=== PATIENT | female | born 1965 | race Hispanic/Latino ===

== ENCOUNTER 2017-04-15 18:05 | Emergency (ER) | payer SELFPAY ==
[2017-04-15] MEDS ORDERED: Sodium Chloride 0.9% 1,000 ML ONE ×3 (18:53→20:55)
[2017-04-15] MEDS ORDERED: Acetaminophen 500 MG TAB ONE (18:53)
[2017-04-15] MEDS ORDERED: Ondansetron HCl/PF 4 MG/2 ML Vial ONE (18:53)
[2017-04-15 19:07] LABS: Bilirubin Negative (Negative); Blood, Urine Negative (Negative); Glucose, Urine (Dipstick) Negative (Negative); Leukocyte Negative (Negative); Nitrite Negative (Negative); Protein, Urine (Dipstick) 30 mg/dL (Neg-Trace); Urobilinogen 0.2 mg/dL (0.2-1.0)
[2017-04-15 19:08] LABS: Clarity SL HAZY (Clear)
[2017-04-15 19:14] LABS: ALT (SGPT) 19 U/L (8-55); AST (SGOT) 19 U/L (5-34); Albumin 4.4 g/dL (3.5-5.0); Alkaline Phosphatase 98 U/L (40-150); Anion Gap 17 mmol/L (10-20); BUN (Urea Nitrogen) 15 mg/dL (9.8-20.1); Bilirubin, Total 0.8 mg/dL (0.2-1.2); Calc. Creatinine Clearance 0 mL/min (70-130); Calcium 9.1 mg/dL (7.8-10.44); Carbon Dioxide 19 mmol/L (22-29); Chloride 100 mmol/L (98-107); Estimated GFR-MDRD 65; Glucose 146 mg/dL (70-105); Lipase 5 U/L (8-78); Potassium 3.6 mmol/L (3.5-5.1); Protein, Total 7.4 g/dL (6.0-8.3); Sodium 132 mmol/L (136-145)
[2017-04-15 19:18] LABS: Specific Gravity, Urine 1.028 (1.002-1.036)
[2017-04-15 19:19] LABS: Bacteria/HPF 1+ HPF (None Seen); Hyaline Casts/LPF 0-3 HYALINE CAST LPF (0-3 Hyaline); Squamous Epithelial 0-3 HPF (0-3); WBC/HPF 0-3 HPF (0-3)
[2017-04-15 19:22] LABS: #Lymphocytes 0.6 thou/uL (1.20-3.40); #Monocytes 0.6 thou/uL (0.11-0.59); #Neutrophils 20.1 thou/uL (1.40-6.50); %Basophils 0.1 % (0.0-1.0); %Lymphocytes 2.6 % (21.0-51.0); %Monocytes 2.7 % (0.0-10.0); %Neutrophils 94.5 % (42.0-75.0); Differential Comment SCANNED; Hemoglobin 14.5 g/dL (12.0-16.0); Mean Corpuscular HGB CONC 34.6 g/dL (32.0-36.0); Mean Corpuscular Hemoglobin 30.7 pg (27.0-31.0); Mean Corpuscular Volume 88.7 fl (81.0-99.0); Mean Platelet Volume 8.6 fL (7.4-10.4); Platelet Count 202 thou/uL (130-400); RBC Distribution Width 11.4 % (11.5-14.5); Red Blood Cell (RBC) Count 4.73 mill/uL (4.20-5.40); White Blood Cell (WBC) Count 21.3 thou/uL (4.8-10.8)
--- NOTE | 2017-04-15 19:46 | RAD ---
RADIOGRAPH CHEST 1 VIEW: HISTORY: A 51-year-old female with fever. FINDINGS: There are no air space densities, pulmonary edema, pneumothorax, or cardiomegaly. The lateral costo phrenic angles are sharp. IMPRESSION: No acute cardiopulmonary findings. precious [] POS: DIMITRIS
[2017-04-15] MEDS ORDERED: Ibuprofen 200 MG TAB ONE (22:08)
== END 2017-04-15 22:13 | disposition home or self-care (01) ==
LOC: NAV ERS 18:05
DX: E86.0 Dehydration (principal); E11.9 Type 2 diabetes mellitus without complications; Z79.84 Long term (current) use of oral hypoglycemic drugs
CPT/HCPCS: 71010; 80053; 81003; 81015; 83605; 83690; 85025; 87040; 87086; 96361; 96374; J2405; J7050

== ENCOUNTER 2021-03-08 16:28 | Emergency (ER) | payer SELFPAY | END 2021-03-08 17:50 | disposition home or self-care (01) | LOC: NAV ERS 16:28 | DX: M79.672 Pain in left foot (principal); E11.9 Type 2 diabetes mellitus without complications ==